=== PATIENT | female | born 1955 | race Caucasian/White ===

== ENCOUNTER → 2018-04-19 13:25 | Outpatient (CLI) | payer OTHER, MEDICAID, SELFPAY ==
--- NOTE | 2018-04-19 14:09 | DI.MRI.S_ITS ---
PROCEDURE: MR LUMBAR SPINE WO CON INDICATIONS: severe low back pain, steroid shots no longer effective TECHNIQUE: Noncontrast sagittal T1 spin echo and T2 fast echo, sagittal STIR, axial T1 and T2 fast spin echo through the lumbar spine. In cases with scoliosis, additional coronal T2 fast spin echo may be performed. COMPARISON: [facility], MR, L-SPINE WITHOUT CONTRAST, 08/02/2016, 8:58. FINDINGS: Image quality: Excellent. Alignment and Curvature: Unchanged trace retrolisthesis of L5 on S1 Bone Marrow: Diffuse endplate spurring. Mild diffuse endplate degenerative signal changes. No acute vertebral body compression fractures. Diffuse mild lumbar disc degeneration from L2-S1 with interval progression at the L5-S1 level. Spinal Cord: Conus medullaris terminates at the L1-L2 level. Visualized cord demonstrates normal signal and size. Paraspinous Soft Tissues: No paravertebral masses. L1-L2: Normal appearance. L2-L3: Mild central canal narrowing. Mild partial effacement of both lateral recesses although this appears symmetric. This may be minimally progressed since the prior study dated 08/02/16. Mild/moderate bilateral foraminal narrowing, grossly unchanged L3-L4: Mild central canal narrowing. Partial effacement of the left and right lateral recesses however this appears similar to 08/02/16 although may be mildly improved on the left. Mild right and [id number] left foraminal stenoses, progressed on the left since the prior study. L4-L5: Mild dorsal epidural lipomatosis. Ligamentum flavum hypertrophy and broad-based posterior disc bulge. Bilateral facet arthropathy. Moderate canal narrowing. There is severe partial effacement of both lateral recesses although this appears grossly unchanged. Moderate left and mild right foraminal narrowing. No interval change L5-S1: Broad-based posterior disc bulge bilateral facet arthropathy. Mild central canal narrowing. Partial effacement of the left and right lateral recess this appears symmetric (not included on prior study) severe bilateral foraminal stenoses, progressed on the left since the prior study and unchanged on the right. IMPRESSION: Interval progression of left L5-S1 severe foraminal stenosis since 08/02/16. There is also severe right L5-S1 foraminal narrowing as before. Minimal worsening of bilateral low-grade subarticular narrowing at the L2-L3 level as above. Dictated by: Sriram Davis M.D. on 04/19/2018 at 14:57 Approved by: Sriram Davis M.D. on 04/19/2018 at 15:07
--- NOTE | 2018-04-19 14:09 | DI.MRI.S_ITS ---
PROCEDURE: MR CERVICAL SPINE WO CON INDICATIONS: cervical stenosis, neck pain TECHNIQUE: Noncontrast sagittal T1 spin echo and T2 fast spin echo, sagittal STIR, foraminal oblique sagittal T2 fast spin echo, and axial gradient echo or T2 fast spin echo through the cervical spine. COMPARISON: None. FINDINGS: Image quality: Excellent. Alignment and Curvature: There is loss of normal cervical lordosis. Bone Marrow: Marrow demonstrates normal overall signal. There is moderate reactive signal within the endplates adjacent to the C5-C6 and C6-C7 intervertebral discs. Spinal Cord: Visualized spinal cord has normal size and signal. No cerebellar tonsillar herniation. Paraspinous Soft Tissues: No paravertebral masses. Prevertebral soft tissues are normal in thickness. C2-C3: Mild facet hypertrophy. No significant canal, nor foraminal stenosis. C3-C4: Mild disc desiccation. Moderate facet and uncovertebral hypertrophy. No significant canal stenosis. Severe left and moderate right foraminal stenosis. Flattening of the left C4 nerve root. C4-C5: Moderate disc desiccation. Mild diffuse disc bulge. Mild facet and uncovertebral hypertrophy. Mild left greater than right foraminal stenosis. Mild canal stenosis. C5-C6: Moderate disc height loss and desiccation. Mild diffuse disc bulge. Mild facet and uncovertebral hypertrophy bilaterally. Mild canal stenosis. Moderate right and mild left foraminal stenosis. C6-C7: Moderate disc height loss and desiccation. Mild diffuse disc bulge with superimposed right paracentral protrusion. Mild facet and uncovertebral hypertrophy bilaterally. Moderate canal stenosis. Moderate bilateral foraminal stenosis. C7-T1: Moderate disc height loss and desiccation. Moderate facet and uncovertebral hypertrophy bilaterally. Mild canal stenosis. Severe bilateral foraminal stenosis with bilateral C8 nerve root flattening. IMPRESSION: 1. Multilevel degenerative disc and facet disease, as well as uncovertebral hypertrophy. 2. Mild multilevel canal stenoses. 3. Multilevel foraminal stenoses, worst at C3-C4 on the left, and bilaterally at C7-T1, where there is associated intraforaminal neural flattening as described above. Recommend correlation with clinical symptoms to ascertain relevance of these findings. Dictated by: Yann Kumar M.D. on 04/19/2018 at 14:00 Approved by: Yann Kumar M.D. on 04/19/2018 at 14:09
== END ==
PROVIDERS: Family Provider Family Medicine; PCP Family Medicine; Visit Provider Physical Medicine & Rehabilitation
DX: M54.5 Low back pain (principal); M48.07 Spinal stenosis, lumbosacral region; M48.062 Spinal stenosis, lumbar region with neurogenic claudication; M48.02 Spinal stenosis, cervical region; M50.31 Other cervical disc degeneration, high cervical region; M54.17 Radiculopathy, lumbosacral region; M54.16 Radiculopathy, lumbar region
CPT/HCPCS: 72141; 72148

== ENCOUNTER → 2018-06-21 11:40 | Outpatient (CLI) | payer OTHER, MEDICAID, SELFPAY ==
--- NOTE | 2018-06-21 11:49 | DI.RAD.S_ITS ---
PROCEDURE: XR SACRUM COCCYX MIN 2V INDICATIONS: eval TECHNIQUE: 3 views of the sacrum and coccyx acquired. COMPARISON: [facility], , SACRUM-COCCYX MIN 2 VIEWS, 09/13/2016, 10:36. FINDINGS: Bones: No fractures or dislocations. No suspicious bony lesions. The sacrum appears normal but there is degenerative disc disease and facet osteoarthritis that is moderately severe at L5-S1, previously present. Soft tissues: Visualized bowel gas pattern is normal. No suspicious soft tissue densities. IMPRESSION: The sacrum appears normal for age, source of current sacral pain symptoms is not seen. There is, however, moderately severe L5-S1 degenerative disc disease and facet osteoarthritis, previously present. Dictated by: Fabricio Jimenez M.D. on 06/21/2018 at 12:43 Approved by: Fabricio Jimenez M.D. on 06/21/2018 at 12:44
== END ==
PROVIDERS: Family Provider Family Medicine; PCP Family Medicine; Visit Provider Physical Medicine & Rehabilitation
DX: M53.3 Sacrococcygeal disorders, not elsewhere classified (principal); M51.37 Other intervertebral disc degeneration, lumbosacral region; M47.817 Spondylosis without myelopathy or radiculopathy, lumbosacral region
CPT/HCPCS: 72220

== ENCOUNTER 2018-07-10 07:10 | Outpatient (CLI) | payer OTHER, MEDICAID, SELFPAY ==
[2018-07-10] VITALS (8 sets, daily range): BP systolic 124–150; BP diastolic 68–94; PULSE 57–70; RESP 16–18; TEMP 36.1; O2SAT 94–100
--- NOTE | 2018-07-10 07:13 | DI.RAD.S_ITS ---
PROCEDURE: PAIN SI JOINT INJECTION INDICATIONS: SACRAL/ COCCYX DISORDER FINDINGS: Fluoroscopic spot filming was performed to verify placement of spinal needle at the sacrococcyx junction level(s), as labeled on the films. Appropriate location(s) of the needle tip(s) was confirmed by injection of iodinated contrast. Dictated by: Sriram Davis M.D. on 07/10/2018 at 9:29 Approved by: Sriram Davis M.D. on 07/10/2018 at 9:31
[2018-07-10] MEDS: MIDAZOLAM 5 MG/5 ML VIAL IV (08:40)
[2018-07-10] MEDS: fentaNYL 100 MCG/2 ML INJ IV (08:50)
[2018-07-10] MEDS: BUPIVACAINE 0.5% (PF) VIAL 2 ML INJ (08:51)
[2018-07-10] MEDS: IOPAMIDOL 15 ML VIAL 3 ML INJ (08:51)
[2018-07-10] MEDS: BETAMETHASONE 30 MG/5 ML MDV 12 MG INJ (08:52)
--- NOTE | 2018-07-10 08:57 | PC.NURSE ---
ASSISTING PT OFF TABLE AND TRANSPORTING TO POST PROC AREA IN STABLE CONDITION
--- NOTE | 2018-07-10 09:09 | P.PCN_ITS ---
Procedures Date/Time Date of procedure: 07/10/18 Time of procedure: 09:01 General Procedure description: PREOP Dx: Sacroiliac joint pain/DJD POST OP DX: Sacroiliac Joint Pain/DJD Procedures: Fluoroscopic guided contrast controlled Sacral-Coccyxgeal injection Physician: Galo Lang D.O. Indications: Agustin is referred by Dr. Garcia for treatment of Sacral-Coccyxgeal joint fx. Description of procedure Fluoroscopic guided, contrast controlled Sacral-Coccyxgeal joint injection Following denial of allergies and review of potential side effects and complications, including, but not necessarily limited to, infection, allergic reaction, local tissue breakdown, temporary as well as permanent nerve injury, paralysis, stroke and possible , the patient indicated that they understood and agreed to proceed. An informed consent was signed by the patient, witnessed by a nurse, and placed in the patient's chart. Additionally, other treatment options including modalities, medications, and physical therapy were reviewed wi th the patient. After review of previous anaesthesic history and IV conscious sedation the patient was deemed safe to proceed with todays procedure with IV conscious sedation as ASA class II designation. Safety time-out was performed to confirm patient ID, procedure to be performed and site of procedure. IV sedation was accomplished with a combination of 3mg of Versed and 50mcg of Fentanyl admini stered by the RN after DO order, titrated to patient comfort during the course of the procedure while the patient remained responsive to all verbal commands. In the prone position following sterile prep and drape of the pelvic region, the Sacral-Coccyxgeal joint was identified fluoroscopically the skin was anesthetized be a 25 gauge 1.5 inch needle with approximately 2cc of 1% lidocaine solution. At this point, a 25gauge, 1.5 needle was atraumatically introduced and advanced under fluoroscopic guidance into the Sacral-Coccyxgeal joint. Following negative aspiration, approximately 0.3 cc of Isovue-300 was injected confirming intra-articular placement without vascular uptake. Radiographic data, including multiple fluoroscopic views of the pelvis, reveals a spinal needle in the Sacral-Coccyxgeal joint. Subsequent view show flow contrast tear superiorly and inferiorly within the joint capsule without vascular intrathecal uptake. At this point a total of 1cc or of 0.5% Marcaine was combined with 1cc of 6mg of betamethasone was injected without incident. The patient tolerated the procedure well without signs or symptoms of complications prior to transfer to the recovery area for further monitoring. The patient was then transferred to the recovery area with a bur observed for an appropriate time after the injection. The patient reverted a vas score of 7 prior to the procedure and postprocedure vas of 1. Total fluoroscopy time: 22.7 sec Total conscious sedation time: 24 min Postop instructions The patient was provided with a pain like to continue to record the patient's response to the target specific procedure prior to the patient's follow-up visit with the referring physician. Additionally, specific post injection care instructions and a contact number to our office were provided if concerns arise regarding the possible complications associated with procedure are suspected. Galo Lang D.O. Complications: none
--- NOTE | 2018-07-10 09:16 | PC.NURSE ---
pt returned from procedure awake and alert, able to move from W/C to chair on own power. Resumed monitoring from [facility].
== END 2018-07-10 09:20 ==
LOC: RAD 07:11
PROVIDERS: Family Provider Family Medicine; PCP Family Medicine; Visit Provider Physical Medicine & Rehabilitation
DX: M53.3 Sacrococcygeal disorders, not elsewhere classified (principal); M47.898 Other spondylosis, sacral and sacrococcygeal region
CPT/HCPCS: 27096; 99152; J0702; J2250; J3010

== ENCOUNTER 2018-12-03 08:35 | Outpatient (CLI) | payer OTHER, MEDICAID, SELFPAY ==
[2018-12-03] VITALS (8 sets, daily range): BP systolic 93–126; BP diastolic 61–91; PULSE 56–62; RESP 16; TEMP 36; O2SAT 96–100
--- NOTE | 2018-12-03 08:38 | DI.RAD.S_ITS ---
PROCEDURE: PAIN L/S TRANSFORAMINAL INJECT INDICATIONS: SPINAL STENOSIS FINDINGS: Fluoroscopic spot filming was performed to verify placement of spinal needles at the L5-S1 level(s), as labeled on the films. Appropriate location(s) of the needle tip(s) was confirmed by injection of iodinated contrast. Dictated by: Sriram Davis M.D. on 12/03/2018 at 12:40 Approved by: Sriram Davis M.D. on 12/03/2018 at 12:40
[2018-12-03] MEDS: fentaNYL 100 MCG/2 ML INJ 50 MCG IV (10:19)
[2018-12-03] MEDS: MIDAZOLAM 5 MG/5 ML VIAL IV (10:19)
[2018-12-03] MEDS: BUPIVACAINE 0.25% (PF) VIAL 2 ML INJ (10:32)
[2018-12-03] MEDS: IOPAMIDOL 15 ML VIAL 3 ML INJ (10:32)
[2018-12-03] MEDS: DEXAMETHASONE 10 MG/ML VIAL 20 MG INJ (10:33)
[2018-12-03] MEDS: BETAMETHASONE 30 MG/5 ML MDV 6 MG INJ (10:33)
--- NOTE | 2018-12-03 10:36 | PM.PROC.1 ---
Procedures Date/Time Date of procedure: 12/03/18 Time of procedure: 10:36 General Procedure description: PREOP DIAGNOSIS 1. FORMAINAL STENOSIS WITH LE SYMPTOMS, POST OP DIAGNOSIS 1. FORMAINAL STENOSIS WITH LE SYMPTOMS, PROCEDURES 1.FLUOROSCOPICALLY GUIDED CONTRAST CONTROLLED TRANSFORAMINAL EPIDURAL STEROID INJECTION - RIGHT L5/S1 TFESI PHYSICIAN: Galo Lang DO INDICATIONS: Agustin is referred by for treatment of Foraminal Stenosis with right LE Symptoms FINDINGS Foraminal Nerve Root Compression secondary to disc disease and facet hypertrophy DESCRIPTION OF PROCEDURE Following review of allergy and review of potential side effects and complications, including, but not necessarily limited to, infection, allergic reaction, local tissue breakdown, stroke, temporary or permanent nerve injury, paralysis, and possible , the patient indicated that the patient understood and agreed to proceed. An informed consent document was signed by the patient, witnessed by a nurse, and placed in the patient's chart. Additionally, other treatment options including medications, modalities, and physical therapy were reviewed with the patient. After review of previous anaesthesic history and IV conscious sedation the patient was deemed safe to proceed with todays procedure with IV conscious sedation as ASA class II designation. Safety time-out was performed to confirm patient ID, procedure to be performed and site of procedure. IV sedation was accomplished with a combination of 2mg of Versed and 50mcg of Fentanyl was administered by the RN after DO order, titrated to patient comfort during the course of the procedure while the patient remained responsive to all verbal commands In the prone position following sterile prep and drape of the lumbar region, the right L5/S1 posterior neuroforamen was identified fluoroscopically. The skin was anesthetized via a 25-gauge 1.5-inch needle with 1% lidocaine solution. At this point, a 25-gauge 3.5-inch spinal needle was atraumatically introduced and advanced under fluoroscopic guidance through the posterior right L5/S1 neuroforamen to approximately the anterior aspect of the canal. Depth was confirmed on lateral view. Following negative aspiration, injection of approximately 1.5 cc of Isovue 200 under live fluoroscopy in the AP view confirmed excellent flow along the nerve root, into the epidural space without vascular or intrathecal uptake observed Radiological data, including multiple fluoroscopic views of the lumbosacral spine, reveal a spinal needle at the right L5/S1 posterior neuroforamen. Subsequent views show flow of contrast material flowing superiorly and inferiorly along the nerve root confirming epidural flow. Subsequently, a test dose of 1.5 cc of 1% lidocaine solution was administered and patient was observed for two minutes for signs or symptoms of complications, including abdominal pain, shortness of breath, bilateral upper or lower extremity weakness, nausea and vomiting, prior to steroid injection. At this point, a total of 3cc or 20mg of dexamethasone and 6mg betamethasone was injected without incident. The procedure tolerated the procedure well without signs or symptoms of complications prior to transfer to the recovery area continued monitoring without incident. The patient was then transferred to the recovery area where they were observed for an appropriate time after the injection. The patient reported a VAS score of 7 prior to the procedure and a post-procedure VAS of 0. Total Fluoroscopy Time: 20.9 seconds Total Conscious Sedation Time: 24min POST OP INSTRUCTIONS The patient was provided a Pain Log to continue to record their response to the target-specific procedure prior to follow-up visit with their referring physician. Additionally, specific post-injection care instructions and a contact number to our office were provided if concerns arise regarding possible complications associated with the procedure are suspected. Galo Lang, Complications: none
--- NOTE | 2018-12-03 15:33 | PC.NURSE ---
1037 rtr from post procedure, stable, snacks provided and tolerated.
== END 2018-12-03 11:07 | disposition home or self-care (01) ==
LOC: RAD 08:37
PROVIDERS: PCP Student in an Organized Health Care Education/Training Program; Visit Provider Physical Medicine & Rehabilitation
DX: M48.07 Spinal stenosis, lumbosacral region (principal); M51.17 Intervertebral disc disorders with radiculopathy, lumbosacral region
CPT/HCPCS: 64483; 99152; J0702; J1100; J2250; J3010

== ENCOUNTER → 2018-12-16 12:48 | Outpatient (CLI) | payer OTHER, MEDICAID, SELFPAY ==
--- NOTE | 2018-12-16 | DI.RAD.S_ITS ---
PROCEDURE: XR CHEST 2V INDICATIONS: CXR PA/LATERAL COUGH [id number] TECHNIQUE: 2 views of the chest were acquired. COMPARISON: Thoracic spine radiograph 08/08/2010. FINDINGS: Surgical changes and devices: None. Lungs and pleura: Lungs are clear. No pleural effusions or pneumothorax. Mediastinum: Mediastinal contours are normal. Heart size is at the upper limits of normal. Bones and chest wall: No suspicious bony abnormalities. Soft tissues appear unremarkable. IMPRESSION: No acute cardiopulmonary abnormality. Dictated by: Matthew Walton M.D. on 12/16/2018 at 14:10 Approved by: Matthew Walton M.D. on 12/16/2018 at 14:12
== END ==
PROVIDERS: PCP Student in an Organized Health Care Education/Training Program; Visit Provider Student in an Organized Health Care Education/Training Program
DX: R05 Cough (principal)
CPT/HCPCS: 71046

== ENCOUNTER 2019-03-28 06:45 | Outpatient (CLI) | payer OTHER, MEDICAID, SELFPAY ==
[2019-03-28] VITALS (8 sets, daily range): BP systolic 115–148; BP diastolic 65–91; PULSE 55–67; RESP 16; TEMP 36.1; O2SAT 96–100
--- NOTE | 2019-03-28 06:46 | DI.RAD.S_ITS ---
PROCEDURE: PAIN L/S TRANSFORAMINAL INJECT INDICATIONS: RADICULOPATHY FINDINGS: Fluoroscopic spot filming was performed to verify placement of spinal needles at the L4-L5 level(s), as labeled on the films. Appropriate location(s) of the needle tip(s) was confirmed by injection of iodinated contrast. Dictated by: Sriram Davis M.D. on 03/28/2019 at 11:11 Approved by: Sriram Davis M.D. on 03/28/2019 at 11:12
[2019-03-28] MEDS: MIDAZOLAM 5 MG/5 ML VIAL IV (08:13)
[2019-03-28] MEDS: fentaNYL 100 MCG/2 ML INJ 50 MCG IV (08:13)
[2019-03-28] MEDS: ONDANSETRON 4 MG/2 ML INJ IV (08:17)
[2019-03-28] MEDS: DEXAMETHASONE 10 MG/ML VIAL 20 MG INJ (08:19)
[2019-03-28] MEDS: BETAMETHASONE 30 MG/5 ML MDV 6 MG INJ (08:19)
[2019-03-28] MEDS: IOPAMIDOL 15 ML VIAL 3 ML INJ (08:19)
[2019-03-28] MEDS: BUPIVACAINE 0.25% (PF) VIAL 2 ML INJ (08:19)
--- NOTE | 2019-03-28 08:23 | PC.NURSE ---
ASSISTING PT OFF TABLE AND TRANSPORTING TO POST PROC AREA IN STABLE CONDITION. PASSING RN CARE OF PT OFF TO PEDRO Egan RN.
--- NOTE | 2019-03-28 08:28 | P.PCN_ITS ---
Procedures Date/Time Date of procedure: 03/28/19 Time of procedure: 08:28 General Procedure description: PREOP DIAGNOSIS 1. FORMAINAL STENOSIS WITH LE SYMPTOMS POST OP DIAGNOSIS 1. FORMAINAL STENOSIS WITH LE SYMPTOMS PROCEDURES 1. FLUOROSCOPICALLY GUIDED CONTRAST CONTROLLED TRANSFORAMINAL EPIDURAL STEROID INJECTION - RIGHT L4/5 TFESI PHYSICIAN: Galo Lang DO INDICATIONS: Agustin is referred by for treatment of Foraminal Stenosis with Right LE Symptoms FINDINGS Foraminal Nerve Root Compression secondary to disc disease and facet hypertrophy DESCRIPTION OF PROCEDURE: Following review of allergy and review of potential side effects and complications, including, but not necessarily limited to, infection, allergic reaction, local tissue breakdown, stroke, temporary or permanent nerve injury, paralysis, and possible , the patient indicated that the patient understood and agreed to proceed. An informed consent document was signed by the patient, witnessed by a nurse, and placed in the patient's chart. Additionally, other treatment options including medications, modalities, and physical therapy were reviewed with the patient. After review of previous anaesthesic history and IV conscious sedation the patient was deemed safe to proceed with todays procedure with IV conscious sedation as ASA class II designation. Safety time-out was performed to confirm patient ID, procedure to be performed and site of procedure. IV sedation was accomplished with a combination of 1mg of Versed and 50mcg of Fentanyl was administered by the RN after DO order, titrated to patient comfort during the course of the procedure while the patient remained responsive to all verbal commands In the prone position following sterile prep and drape of the lumbar region, the Right L4/5 posterior neuroforamen was identified fluoroscopically. The skin was anesthetized via a 25-gauge 1.5-inch needle with 1% lidocaine solution. At this point, a 25-gauge 3.5-inch spinal needle was atraumatically introduced and ad vanced under fluoroscopic guidance through the posterior Right L4/5 neuroforamen to approximately the anterior aspect of the canal. Depth was confirmed on lateral view. Following negative aspiration, injection of approximately 1.5 cc of Isovue 200 under live fluoroscopy in the AP view confirmed excellent flow along the nerve root, into the epidural space without vascular or intrathecal uptake observed Radiological data, including multiple fluoroscopic views of the lumbosacral spine, reveal a spinal needle at the right L4/5 posterior neuroforamen. Subsequent views show flow of contrast material flowing superiorly and inferiorly along the nerve root confirming epidural flow. Subsequently, a test dose of 1.5 cc of 1% lidocaine solution was administered and patient was observed for two minutes for signs or symptoms of complications, including abdominal pain, shortness of breath, bilateral upper or lower extremity weakness, nausea and vomiting, prior to steroid injection. At this point, a total of 3cc or 20mg of dexamethasone and 6mg of betamethasone was injected without incident. The procedure tolerated the procedure well without signs or symptoms of complications prior to transfer to the recovery area continued monitoring without incident.The patient was then transferred to the recovery area where they were observed for an appropriate time after the injection. The patient reported a VAS score of 7 prior to the procedure and a post- procedure VAS of 0. Total Fluoroscopy Time: 10 seconds Total Conscious Sedation Time: 24min POST OP INSTRUCTIONS The patient was provided a Pain Log to continue to record their response to the target-specific procedure prior to follow-up visit with their referring physician. Additionally, specific post-injection care instructions and a contact number to our office were provided if concerns arise regarding possible complications associated with the procedure are suspected. Galo Lang, Complications: none
--- NOTE | 2019-03-28 08:56 | PC.NURSE ---
Post procedure discharge note: Patient arrived at 0832. Patient awake and alert. VSS on arrival. Pain level 05/12. Handoff report received from Efrain Da Silva RN. Discharge instructions reviewed with patient and spouse with good understanding. Discharged to home. W/c to car at 0850. Pain level unchanged at 3
== END 2019-03-28 08:50 | disposition home or self-care (01) ==
LOC: RAD 06:46
PROVIDERS: PCP Student in an Organized Health Care Education/Training Program; Visit Provider Physical Medicine & Rehabilitation
DX: M48.061 Spinal stenosis, lumbar region without neurogenic claudication (principal); M51.16 Intervertebral disc disorders with radiculopathy, lumbar region
CPT/HCPCS: 64483; 99152; J0702; J1100; J2250; J2405; J3010

== ENCOUNTER 2019-05-01 07:10 | Outpatient (CLI) | payer OTHER, MEDICAID, SELFPAY ==
[2019-05-01] VITALS (9 sets, daily range): BP systolic 112–140; BP diastolic 72–94; PULSE 69–83; RESP 14–16; O2SAT 93–100
--- NOTE | 2019-05-01 07:11 | DI.RAD.S_ITS ---
PROCEDURE: PAIN C/T INTERLAMINAR INJECT INDICATIONS: SPINAL STENOSIS FINDINGS: Fluoroscopic spot filming was performed to verify placement of spinal needles at the C6-C7 level(s), as labeled on the films. Appropriate location(s) of the needle tip(s) was confirmed by injection of iodinated contrast. Dictated by: Sriram Davis M.D. on 05/01/2019 at 10:41 Approved by: Sriram Davis M.D. on 05/01/2019 at 10:41
[2019-05-01] MEDS: MIDAZOLAM 5 MG/5 ML VIAL IV (09:06)
[2019-05-01] MEDS: fentaNYL 100 MCG/2 ML INJ 50 MCG IV (09:06)
[2019-05-01] MEDS: IOPAMIDOL 15 ML VIAL 3 ML INJ (09:10)
[2019-05-01] MEDS: DEXAMETHASONE 10 MG/ML VIAL 20 MG INJ (09:10)
[2019-05-01] MEDS: BUPIVACAINE 0.25% (PF) VIAL 2 ML INJ (09:10)
--- NOTE | 2019-05-01 09:13 | PC.NURSE ---
ASSISTING PT OFF TABLE AND TRANSPORTING TO POST PROC AREA IN STABLE CONDITION. PASSING RN CARE OF PT OFF TO NIYA Oneal RN.
--- NOTE | 2019-05-01 09:16 | P.PCN_ITS ---
Procedures Date/Time Date of procedure: 05/01/19 Time of procedure: 09:16 General Procedure description: PREOP DIAGNOSIS 1. CERVICAL STENOSIS, 2. CERVICAL HNP WITH UPPER EXTREMITY RADICULAR FEATURES, POST OP DIAGNOSIS 1. CERVICAL STENOSIS, 2. CERVICAL HNP WITH UPPER EXTREMITY RADICULAR FEATURES, PROCEDURES 1. FLUORSCOPICALLY GUIDED CONTRAST CONTROLLED INTERLAMINAR EPIDURAL STEROID INJECTION - C6/7 TL [place] PHYSICIAN: Galo Lang, DO INDICATIONS Agustin is referred by Dr. Tijerina for treatment of Cervical HNP with Upper Extremity Paresthesias. FINDINGS Cervical Stenosis due to disc deterioration and nerve root irritation and nerve root irritation DESCRIPTION OF PROCEDURE Fluoroscopically guided, contrast-controlled C6/7 translaminar epidural steroid injection with conscious sedation. Following review of allergy and review of potential side effects and complications, including, but not necessarily limited to, infection, allergic reaction, local tissue breakdown, temporary as well as permanent nerve injury, stroke, paralysis, and possible , the patient indicated that patient understood and agreed to proceed. An informed consent document was signed by the patient, witnessed by a nurse, and placed in the patient's chart. Additionally, other treatment options including modalities, medications, and physical therapy were reviewed with the patient. After review of previous anaesthesic history and IV conscious sedation the patient was deemed safe to proceed with todays procedure with IV conscious sedation as ASA class II designation. Safety time-out was performed to confirm patient ID, procedure to be performed and site of procedure. IV sedation was accomplished with a combination of 2mg of Versed and 50mcg of Fentanyl administered by the RN after DO order, titrated to patient comfort during the course of the procedure while the patient remained responsive to all verbal commands. In the prone position, following sterile prep and drape of the cervical region, the C6/7 translaminar space was identified fluoroscopically. The skin was anesthetized via a 25-gauge 1.5-inch needle with 1% lidocaine solution. At this point, a 25-gauge, 2.5-inch short bevel spinal needle was atraumatically introduced and advanced under fluoroscopic guidance into epidural space at the C6/7 translaminar space. Depth was confirmed on lateral view. Radiological data, including multiple fluoroscopic views of the cervical spine, reveal a spinal needle at the C6/7 translaminar space. Lateral views then show placement of the needle in the epidural space. Subsequent views show contrast material flowing superiorly and inferiorly in the epidural space. DSA fluoroscopy with live contrast injection, once again, confirmed no vascular or intrathecal uptake. At this point, using loss of resistance technique with saline and air, the epidural space was entered. Following negative aspiration, injection of approximately 1.5 cc of Isovue-200 with live fluoroscopy in the AP view confirmed epidural flow in the epidural space without vascular or intrathecal uptake observed. Subsequently, a test dose of 1 cc of 1% lidocaine solution was injected and patient was observed for two minutes without signs or symptoms of complications, including abdominal pain, shortness of breath, bilateral upper or lower extremity weakness, nausea and vomiting, prior to steroid injection. At this point, 2cc or 20mg of dexamethasone was then injected without incident. The patient tolerated the procedure well without signs or symptoms of complications prior to being transferred to the recovery area for further m onitoring, The patient was then transferred to the recovery area where they were observed for an appropriate period of time after the injection. The patient reported a VAS score of 6 prior to the procedure and a post-procedure VAS of 0. Total Fluoroscopy Time: 18 seconds Total Conscious Time: 24min POST OP INSTRUCTIONS The patient was provided a Pain Log to continue to record their response to the target-specific procedure prior to follow-up visit with the referring provider. Additionally, specific post-injection care instructions and a contact number to our office were provided if concerns arise regarding possible complications associated with the procedure are suspected. Galo Lang DO Complications: none
--- NOTE | 2019-05-01 10:40 | PC.NURSE ---
patient arrived from procedure via w/c accompanied by Soo, stand by assist to chair, denies pain, given water and cookies,
== END 2019-05-01 09:44 | disposition home or self-care (01) ==
LOC: RAD 07:10
PROVIDERS: PCP Student in an Organized Health Care Education/Training Program; Referring Provider Physical Medicine & Rehabilitation; Visit Provider Physical Medicine & Rehabilitation
DX: M48.02 Spinal stenosis, cervical region (principal); M50.123 Cervical disc disorder at C6-C7 level with radiculopathy; R20.2 Paresthesia of skin
CPT/HCPCS: 62321; 99152; J1100; J2250; J3010

== ENCOUNTER → 2019-09-13 08:16 | Outpatient (CLI) | payer OTHER, MEDICAID, SELFPAY ==
[2019-09-14 18:38] LABS: COVID19 Sendout Not Detected (Not Detect)
== END ==
PROVIDERS: PCP Student in an Organized Health Care Education/Training Program; Visit Provider Physician Assistant
DX: Z01.812 Encounter for preprocedural laboratory examination (principal)
CPT/HCPCS: 87635

== ENCOUNTER 2019-09-16 09:21 | Outpatient (CLI) | payer OTHER, MEDICAID, SELFPAY ==
[2019-09-16] VITALS (9 sets, daily range): BP systolic 113–147; BP diastolic 73–88; PULSE 61–80; RESP 15–17; TEMP 36.3; O2SAT 96–100
--- NOTE | 2019-09-16 09:22 | DI.RAD.S_ITS ---
PROCEDURE: PAIN L/S TRANSFORAMINAL INJECT INDICATIONS: SPONDYLOSIS Fluoroscopic spot filming was performed to verify placement of a spinal needle at the L4-L5 level, as labeled on the films. Appropriate location of the needle tip was confirmed by injection of iodinated contrast. IMPRESSION: Intraprocedural examination within normal limits. Dictated by: Humble Begum M.D. on 09/17/2019 at 9:05 Approved by: Humble Begum M.D. on 09/17/2019 at 9:06
[2019-09-16] MEDS: MIDAZOLAM 5 MG/ML VIAL 2 MG IV ×2 (10:27→10:32)
[2019-09-16] MEDS: fentaNYL 100 MCG/2 ML INJ 50 MCG IV (10:27)
[2019-09-16] MEDS: BUPIVACAINE 0.25% (PF) VIAL 2 ML INJ (10:35)
[2019-09-16] MEDS: DEXAMETHASONE 10 MG/ML VIAL 20 MG INJ (10:35)
[2019-09-16] MEDS: IOPAMIDOL 15 ML VIAL 3 ML INJ (10:35)
[2019-09-16] MEDS: BETAMETHASONE 30 MG/5 ML MDV 6 MG INJ (10:35)
--- NOTE | 2019-09-16 10:47 | P.PCN_ITS ---
Date/Time/Diagnoses Date of procedure: 09/16/19 Time of procedure: 10:47 Pre-procedure diagnosis: 1. FORAMINAL STENOSIS WITH LE SYMPTOMS Post-procedure diagnosis: same Procedure Notes Procedure: 1. FLUOROSCOPICALLY GUIDED CONTRAST CONTROLLED TRANSFORAMINAL EPIDURAL STEROID INJECTION - RIGHT L4/5 TFESI Indications: Agustin is referred by for treatment of Foraminal Stenosis with Right LE Symptoms Physician: Galo Lang Total Fluoroscopy time (seconds): 8 Total sedation minutes: 24 Complications: none Procedure in detail & Post-procedure care: FINDINGS Foraminal Nerve Root Compression secondary to disc disease and facet hypertrophy DESCRIPTION OF PROCEDURE Following review of allergy and review of potential side effects and complications, including, but not necessarily limited to, infection, allergic reaction, local tissue breakdown, stroke, temporary or permanent nerve injury, paralysis, and possible , the patient indicated that the patient understood and agreed to proceed. An informed consent document was signed by the patient, witnessed by a nurse, and placed in the patient's chart. Additionally, other treatment options including medications, modalities, and physical therapy were reviewed with the patient. After review of previous anaesthesic history and IV conscious sedation the patient was deemed safe to proceed with today?s procedure with IV conscious sedation as ASA class II designation. Safety time-out was performed to confirm patient ID, procedure to be performed and site of procedure. IV sedation was accomplished with a combination of 3mg of Versed and 50mcg of Fentanyl was administered by the RN after DO order, titrated to patient comfort during the course of the procedure while the patient remained responsive to all verbal commands In the prone position following sterile prep and drape of the lumbar region, the Right L4/5 posterior neuroforamen was identified fluoroscopically. The skin was anesthetized via a 25-gauge 1.5-inch needle with 1% lidocaine solution. At this point, a 25-gauge 3.5-inch spinal needle was atraumatically introduced and advanced under fluoroscopic guidance through the posterior Right L4/5 neuroforamen to approximately the anterior aspect of the canal. Depth was confirmed on lateral view. Following negative aspiration, injection of approximately 1.5 cc of Isovue 200 under live fluoroscopy in the AP view confirmed excellent flow along the nerve root, into the epidural space without vascular or intrathecal uptake observed Radiological data, including multiple fluoroscopic views of the lumbosacral spine, reveal a spinal needle at the right L4/5 posterior neuroforamen. Subsequent views show flow of contrast material flowing superiorly and inferiorly along the nerve root confirming epidural flow. Subsequently, a test dose of 1.5 cc of 1% lidocaine solution was administered and patient was observed for two minutes for signs or symptoms of complications, including abdominal pain, shortness of breath, bilateral upper or lower extremity weakness, nausea and vomiting, prior to steroid injection. At this point, a total of 3cc or 20mg of dexamethasone and 6mg of betamethasone was injected without incident. The procedure tolerated the procedure well without signs or symptoms of complications prior to transfer to the recovery area continued monitoring without incident. The patient was then transferred to the recovery area where they were observed for an appropriate time after the injection. The patient reported a VAS score of 7 prior to the procedure and a post- procedure VAS of 0. POST OP INSTRUCTIONS The patient was provided a Pain Log to continue to record their response to the target-specific procedure prior to follow-up visit with their referring physician. Additionally, specific post-injection care instructions and a contact number to our office were provided if concerns arise regarding possible complications associated with the procedure are suspected.
--- NOTE | 2019-09-16 11:28 | PC.NURSE ---
1058 pt returned to pre procedure room by . 2PA transfer from wc to chair. Resumed monitoring by Emmanuel
== END 2019-09-16 11:13 | disposition home or self-care (01) ==
LOC: RAD 09:22
PROVIDERS: PCP Student in an Organized Health Care Education/Training Program; Referring Provider Physical Medicine & Rehabilitation; Visit Provider Physical Medicine & Rehabilitation
DX: M48.061 Spinal stenosis, lumbar region without neurogenic claudication (principal); M51.16 Intervertebral disc disorders with radiculopathy, lumbar region
CPT/HCPCS: 64483; 99152; J0702; J1100; J2250; J3010

== ENCOUNTER 2019-10-02 15:57 | Emergency (ER) | payer OTHER, MEDICAID, SELFPAY ==
[2019-10-02 16:16] VITALS: BP 129/82; PULSE 72; RESP 16; TEMP 37.1; O2SAT 98; BMI 31.8
== END 2019-10-02 18:14 | disposition left against medical advice (07) ==
PROVIDERS: Emergency Provider Emergency Medicine; PCP Student in an Organized Health Care Education/Training Program; Referring Provider Student in an Organized Health Care Education/Training Program
CPT/HCPCS: 99281

== ENCOUNTER → 2019-12-02 14:22 | Outpatient (CLI) | payer OTHER, MEDICAID, SELFPAY ==
--- NOTE | 2019-12-02 | DI.RAD.S_ITS ---
PROCEDURE: XR CHEST 2V INDICATIONS: UPPER RESPIRATORY INFECTION TECHNIQUE: 2 views of the chest were acquired. COMPARISON: [facility], CR, XR CHEST 2V, 12/16/2018, 13:49. FINDINGS: Surgical changes and devices: None. Lungs and pleura: Lungs are clear. No pleural effusions or pneumothorax. Mediastinum: Mediastinal contours are normal. Heart size is normal. Bones and chest wall: No suspicious bony abnormalities. Soft tissues appear unremarkable. IMPRESSION: No acute cardiopulmonary disease. Dictated by: Tio Lowery M.D. on 12/02/2019 at 14:50 Approved by: Tio Lowery M.D. on 12/02/2019 at 14:51
== END ==
PROVIDERS: PCP Student in an Organized Health Care Education/Training Program; Referring Provider Student in an Organized Health Care Education/Training Program; Visit Provider Student in an Organized Health Care Education/Training Program
DX: J06.9 Acute upper respiratory infection, unspecified (principal)
CPT/HCPCS: 71046

== ENCOUNTER → 2019-12-16 09:17 | Outpatient (CLI) | payer OTHER, MEDICAID, SELFPAY ==
--- NOTE | 2019-12-16 09:17 | DI.RAD.S_ITS ---
PROCEDURE: XR LUMBAR SPINE MIN 4V INDICATIONS: low back pain TECHNIQUE: 5 views of the lumbar spine acquired. COMPARISON: [facility], CR, XR SMALL BOWEL BARIUM, 03/13/2016, 10:14. [facility], CR, L-SPINE 2-3 VIEWS, 08/16/2016, 11:10. [facility], CR, XR CHEST 2V, 12/16/2018, 13:49. FINDINGS: Bones: 5 nonrib-bearing vertebrae are present. Trace multilevel retrolisthesis. Multilevel disc degeneration, severe at the L5-S1 level. Moderate L4-L5 and L5-S1 facet joint arthropathy. No vertebral body compression fractures. No suspicious bony lesions. Soft tissues: Overlying bowel gas pattern is normal. No suspicious soft tissue calcifications. Mid abdominal metallic stent graft redemonstrated. Flexion/extension: There is normal range of motion, with preserved normal alignment. IMPRESSION: Multilevel spondylosis, most notably at the L5-S1 level. Dictated by: Tony JC Interpreted: Olive Solano MD on 12/16/2019 at 10:06 Approved by: Olive Solano M.D. on 12/16/2019 at 13:17
== END ==
PROVIDERS: PCP Student in an Organized Health Care Education/Training Program; Referring Provider Student in an Organized Health Care Education/Training Program; Visit Provider Physical Medicine & Rehabilitation
DX: M54.5 Low back pain (principal); M47.27 Other spondylosis with radiculopathy, lumbosacral region; M47.26 Other spondylosis with radiculopathy, lumbar region; M48.062 Spinal stenosis, lumbar region with neurogenic claudication
CPT/HCPCS: 72110

== ENCOUNTER → 2019-12-25 10:45 | Outpatient (CLI) | payer OTHER, MEDICAID, SELFPAY ==
--- NOTE | 2019-12-25 | DI.RAD.S_ITS ---
PROCEDURE: XR CHEST 2V INDICATIONS: UPPER RESPIRATORY INFECTION TECHNIQUE: 2 views of the chest were acquired. COMPARISON: [facility], CR, XR CHEST 2V, 12/02/2019, 14:15. FINDINGS: Surgical changes and devices: None. Lungs and pleura: Lungs are clear. No pleural effusions or pneumothorax. Mediastinum: Mediastinal contours are normal. Heart size is normal. Bones and chest wall: No suspicious bony abnormalities. Soft tissues appear unremarkable. IMPRESSION: No acute cardiopulmonary findings. Dictated by: Cindy Ibrahim M.D. on 12/25/2019 at 12:03 Approved by: Cindy Ibrahim M.D. on 12/25/2019 at 12:03
== END ==
PROVIDERS: PCP Student in an Organized Health Care Education/Training Program; Referring Provider Student in an Organized Health Care Education/Training Program; Visit Provider Student in an Organized Health Care Education/Training Program
DX: J06.9 Acute upper respiratory infection, unspecified (principal)
CPT/HCPCS: 71046

== ENCOUNTER → 2020-02-02 12:55 | Outpatient (CLI) | payer OTHER, MEDICAID, SELFPAY ==
[2020-02-02 14:14] LABS: COVID19 -Nasal RAPID Negative (Negative)
== END ==
PROVIDERS: PCP Student in an Organized Health Care Education/Training Program; Visit Provider Physical Medicine & Rehabilitation
DX: Z01.812 Encounter for preprocedural laboratory examination (principal); Z11.59 Encounter for screening for other viral diseases
CPT/HCPCS: 87635; C9803

== ENCOUNTER 2020-02-03 13:25 | Outpatient (CLI) | payer OTHER, MEDICAID, SELFPAY ==
[2020-02-03] VITALS (9 sets, daily range): BP systolic 114–146; BP diastolic 66–79; PULSE 69–79; RESP 14–23; TEMP 36.4; O2SAT 98–100
--- NOTE | 2020-02-03 13:27 | DI.RAD.S_ITS ---
PROCEDURE: PAIN L/S FACET INJ/BLK 1ST ROSALVA COMPARISON: [facility], , PAIN L/S TRANSFORAMINAL INJECT, 09/16/2019, 9:32. INDICATIONS: SPONDYLOSIS Fluoroscopic spot filming was performed to verify placement of bilateral spinal needles at the L4, L5, and S1 levels, as labeled on the films. Appropriate location of the needle tip was confirmed by injection of iodinated contrast. IMPRESSION: Intraprocedural examination within normal limits. Dictated by: Humble Begum M.D. on 02/03/2020 at 14:20 Approved by: Humble Begum M.D. on 02/03/2020 at 14:20
[2020-02-03] MEDS: MIDAZOLAM 5 MG/5 ML VIAL IV (14:45)
[2020-02-03] MEDS: fentaNYL 100 MCG/2 ML INJ 50 MCG IV (14:45)
--- NOTE | 2020-02-03 15:06 | P.PCN_ITS ---
Date/Time/Diagnoses Date of procedure: 02/03/20 Time of procedure: 15:06 Pre-procedure diagnosis: 1. FACET ARTHROPATHY Post-procedure diagnosis: same Procedure Notes Procedure: 1. BILATERAL- L4, L5 and S1 DIAGNOSTIC MB BLOCKS with LA Anesthetic Indications: Agustin is referred by Dr. Tijerina for treatment of Bilateral Axial LBP. Physician: Galo Lang Total Fluoroscopy time (seconds): 11 Total sedation minutes: 18 Complications: none Procedure in detail & Post-procedure care: DESCRIPTION OF PROCEDURE Fluoroscopically guided, contrast-controlled bilateral L4, L5 and S1 medial branch blocks with 0.5cc of 0.5% Marcaine. Following review of allergy and review of potential side effects and complications, including, but not necessarily limited to, infection, allergic reaction, local tissue breakdown, nerve injury, paralysis, stroke and possible , the patient indicated that the patient understood and agreed to proceed. An informed consent document was signed by the patient, witnessed by a nurse, and placed in the patient's chart. After review of previous anaesthesic history and IV conscious sedation the patient was deemed safe to proceed with today's procedure with IV conscious kitty tion as ASA class II designation. Safety time-out was performed to confirm patient ID, procedure to be performed and site of procedure. IV sedation was accomplished with a combination of 2mg of Versed and 50mcg of Fentanyl was administered by the RN after DO order, titrated to patient comfort during the course of the procedure while the patient remained responsive to all verbal commands In the prone position, following sterile prep and drape of the lumbar region, the right L4, L5 and S1 anatomical location of the medial branch of the dorsal ramus was identified fluoroscopically. Subsequently an anesthetic skin wheal using 1% lidocaine solution was initiated at each of the anatomical spots. Subsequently then a 22-gauge 3.5-inch spinal needle was atraumatically introduced and advanced under fluoroscopic guidance at each of the corresponding sites at the right L4, L5 and S1 MB. After negative aspiration, 0.2cc of Isovue 200 was injected, confirming placement without vascular or intrathecal uptake. Subsequently then 0.5cc of 0.5% Marcaine solution was injected at each of the corresponding sites at the right L4, L5 and S1 medial branch locations. The identical procedure was replicated on the left. The patient tolerated the procedure well without signs or symptoms of complications prior to transfer to the recovery area continued monitoring without incident. Post-procedure, the patient was monitored initiating provocative activities to measure the amount of relief from block of the facetogenic pain. The patient reported a VAS of 7 prior to the procedure and a post-procedure VAS of 1. It has been a pleasure to assist in the diagnostic and therapeutic care of your patient. POST OP INSTRUCTIONS The patient was provided with a Pain Log to complete over the next several hours and subsequent days prior to the patient's follow up with the ordering physician. If the patient has foot drill operator relief to the solution applied, then they may be a candidate for medial branch rhizotomy. The patient is aware, was provided, once again, with a Pain Log and will follow up with the referring physician for review and clinical correlation
[2020-02-03] MEDS: BUPIVACAINE 0.5% (PF) VIAL 5 ML INJ (15:42)
[2020-02-03] MEDS: IOPAMIDOL 15 ML VIAL 3 ML INJ (15:42)
== END 2020-02-03 15:29 | disposition home or self-care (01) ==
LOC: RAD 13:25
PROVIDERS: PCP Student in an Organized Health Care Education/Training Program; Referring Provider Student in an Organized Health Care Education/Training Program; Visit Provider Physical Medicine & Rehabilitation
DX: M47.816 Spondylosis without myelopathy or radiculopathy, lumbar region (principal); M47.817 Spondylosis without myelopathy or radiculopathy, lumbosacral region; M54.5 Low back pain
CPT/HCPCS: 64493; 64494; 99152; J2250; J3010

== ENCOUNTER → 2020-02-16 11:07 | Outpatient (CLI) | payer OTHER, MEDICAID, SELFPAY ==
[2020-02-16 12:59] LABS: COVID19 -Nasal RAPID Negative (Negative)
== END ==
PROVIDERS: PCP Student in an Organized Health Care Education/Training Program; Visit Provider Physical Medicine & Rehabilitation
DX: Z01.812 Encounter for preprocedural laboratory examination (principal); Z20.828 Contact with and (suspected) exposure to other viral communicable diseases
CPT/HCPCS: 87635; C9803

== ENCOUNTER 2020-02-17 10:26 | Outpatient (CLI) | payer OTHER, MEDICAID, SELFPAY ==
[2020-02-17] VITALS (9 sets, daily range): BP systolic 121–151; BP diastolic 73–89; PULSE 62–76; RESP 14–20; TEMP 36.4; O2SAT 99–100
--- NOTE | 2020-02-17 10:28 | DI.RAD.S_ITS ---
PROCEDURE: PAIN L/S MED/LAT N RFA BILAT INDICATIONS: SPONDYLOSIS COMPARISON: None. FINDINGS: Fluoroscopic spot filming was performed to verify placement of spinal needles at the L4, L5, S1 level(s), as labeled on the films. Appropriate location(s) of the needle tip(s) was confirmed by injection of iodinated contrast. Dictated by: Sriram Davis M.D. on 02/17/2020 at 13:02 Approved by: Sriram Davis M.D. on 02/17/2020 at 13:03
[2020-02-17] MEDS: fentaNYL 100 MCG/2 ML INJ 50 MCG IV (11:50)
[2020-02-17] MEDS: MIDAZOLAM 5 MG/5 ML VIAL IV (11:55)
[2020-02-17] MEDS: BUPIVACAINE 0.5% (PF) VIAL 5 ML INJ (12:15)
[2020-02-17] MEDS: LIDOCAINE 1% 20 ML INJ (12:16)
--- NOTE | 2020-02-17 12:26 | P.PCN_ITS ---
Date/Time/Diagnoses Date of procedure: 02/17/20 Time of procedure: 12:26 Pre-procedure diagnosis: 1. RECALCITRANT FACET ARTHROPATHY Post-procedure diagnosis: same Procedure Notes Procedure: 1. BILATERAL L4 AND L5 MEDIAL BRANCH RADIOFREQUENCY NEUROTOMY AND S1 DORSAL RAMUS BRANCH RADIOFREQUENCY NEUROTOMY Indications: Agustin is referred by Dr. Tijerina for treatment of facet arthropathy. Physician: Galo Lang Total Fluoroscopy time (seconds): 15 Total sedation minutes: 29 Complications: none Procedure in detail & Post-procedure care: DESCRIPTION OF PROCEDURE Bilateral L4 and L5 medial branch radiofrequency neurotomy and bilateral S1 dorsal ramus radiofrequency neurotomy under fluoroscopy with conscious sedation. The patient is well known to this clinic having undergone previous facet injections with good but temporary relief. The patient has experienced appropriate, concordant relief with previous facet and median branch blocks but the patient's pain has been recalcitrant to further conservative measures. Therefore, based upon the patient's relief and persistent symptoms, the patient is considered an appropriate candidate for facet rhizotomy. All of the patient's questions regarding the risks versus benefits of the procedure, including, but not limited to, bleeding, infection, temporary as well as lasting nerve injury, paralysis, stroke, and , as well treatment alternatives were answered to satisfaction. After obtaining informed consent, denial of pertinent drug allergies, as well as being made aware of the potential risks of bleeding, infection, spinal cord trauma, paralysis, temporary and permanent nerve damage, seizure, stroke, and possible , the patient was brought to the fluoroscopy suite and positioned prone on the fluoroscopy table. The lumbar region was prepped with Betadine and covered with a fenestrated drape in the usual sterile fashion. Appropriate monitors applied including pulse oximeter, pulse, and blood pressure for regular monitoring throughout the procedure. After review of previous anaesthesic history and IV conscious sedation the patient was deemed safe to proceed with today's procedure with IV conscious sedation as ASA class II designation. Safety time-out was performed to confirm patient ID, procedure to be performed and site of procedure. IV sedation was accomplished with a combination of 4mg of Versed and 50mcg of Fentanyl administered by the RN after DO order, titrated to patient comfort during the course of the procedure while the patient remained responsive to all verbal commands. After local infiltration using 1% lidocaine, under fluoroscopic guidance, a 10- cm RF insulated needle with a 10-mm active tip was positioned parallel to the junction of the right sacral ala and the superior articulating process where the S1 dorsal ramus resides. Needle placement was confirmed with motor stimulation of .5v on the right which produced local stimulation without radicular component. The stimulation was then increased to 2v with, once again, only local multifidus stimulation without radicular component. The needle was then removed and the identical procedure was performed along the length of the right L5 medial branch with motor stimulation at .7v on the right. The identical procedure was once again performed along the length of the right L4 medial branch with motor stimulation of .5v on the right. The medial branches were then anesthetised with 0.5% Marcaine. This was then followed by two discreet lesions performed at 80 degrees Celsius for 90 seconds each. The identical procedure was repeated on the left. The patient tolerated the procedure well without signs or symptoms of complications prior to transfer to the recovery area continued monitoring without incident. The patient was then transferred to the recovery area where they were observed for an appropriate period of time after the injection. The patient reported a VAS score of 9 prior to the procedure and a post-procedure VAS of 0. POST OP INSTRUCTIONS The patient was provided a Pain Log to continue to record the patient's response to the target-specific procedure prior to the patient's follow-up visit with the referring physician. Additionally, specific post-injection care instructions and a contact number to our office were provided if concerns arise regarding possible complications associated with the procedure are suspected.
== END 2020-02-17 12:35 | disposition home or self-care (01) ==
LOC: RAD 10:28
PROVIDERS: PCP Student in an Organized Health Care Education/Training Program; Referring Provider Student in an Organized Health Care Education/Training Program; Visit Provider Physical Medicine & Rehabilitation
DX: M47.816 Spondylosis without myelopathy or radiculopathy, lumbar region (principal); M47.817 Spondylosis without myelopathy or radiculopathy, lumbosacral region
CPT/HCPCS: 64635; 64636; 99152; 99153; J2250; J3010

== ENCOUNTER → 2020-08-13 13:02 | Outpatient (CLI) | payer MEDICARE, MEDICAID, SELFPAY ==
--- NOTE | 2020-08-13 13:04 | DI.RAD.S_ITS ---
PROCEDURE: XR LUMBAR SPINE MIN 4V INDICATIONS: LBP s/p fall TECHNIQUE: 5 views of the lumbar spine were acquired, including bilateral oblique views. COMPARISON: [facility], CR, XR LUMBAR SPINE MIN 4V, 12/16/2019, 9:08. FINDINGS: Bones: 5 nonrib-bearing vertebrae are present. There is normal bony alignment. No vertebral body compression fractures. No suspicious bony lesions. There is multilevel disc space narrowing and degenerative endplate changes that are slightly worse at the L3-4 and L5-S1 levels. Facet hypertrophy is seen from the L3-4 through L5-S1 levels. Soft tissues: Overlying bowel gas pattern is normal. No suspicious soft tissue calcifications. A vascular stent is seen in the abdomen. Oblique images: No pars defects. IMPRESSION: No acute osseous abnormality. Multilevel spondylosis is redemonstrated, again worst at the L5-S1 level. Dictated by: Arjun Rowan M.D. on 08/13/2020 at 13:52 Approved by: Arjun Rowan M.D. on 08/13/2020 at 13:56
== END ==
PROVIDERS: PCP Family Medicine; Referring Provider Physical Medicine & Rehabilitation; Visit Provider Physical Medicine & Rehabilitation
DX: M47.816 Spondylosis without myelopathy or radiculopathy, lumbar region (principal); M53.3 Sacrococcygeal disorders, not elsewhere classified
CPT/HCPCS: 72110; 99214

== ENCOUNTER 2020-08-31 10:11 | Outpatient (CLI) | payer MEDICARE, MEDICAID, SELFPAY ==
[2020-08-31] VITALS (7 sets, daily range): BP systolic 110–164; BP diastolic 65–98; PULSE 58–76; RESP 13–20; TEMP 36.4; O2SAT 96–100
--- NOTE | 2020-08-31 10:15 | DI.RAD.S_ITS ---
PROCEDURE: PAIN SI JOINT INJECTION INDICATIONS: SACROILIAC DJD COMPARISON: [facility], RG, XR PELVIS 1V, 08/08/2010, 11:28. [facility], CR, XR SACRUM COCCYX MIN 2V, 06/21/2018, 11:47. [facility], CR, XR LUMBAR SPINE MIN 4V, 12/16/2019, 9:08. [facility], CR, XR LUMBAR SPINE MIN 4V, 08/13/2020, 13:08. FINDINGS: Fluoroscopic spot filming was performed to verify placement of spinal needles at the right SI joint level(s), as labeled on the films. Appropriate location(s) of the needle tip(s) was confirmed by injection of iodinated contrast. IMPRESSION: Fluoroscopy for pain management. Dictated by: Tio Lowery M.D. on 08/31/2020 at 12:37 Approved by: Tio Lowery M.D. on 08/31/2020 at 12:38
[2020-08-31] MEDS: fentaNYL 100 MCG/2 ML INJ 50 MCG IV (11:50)
[2020-08-31] MEDS: MIDAZOLAM 5 MG/5 ML VIAL IV (11:50)
[2020-08-31] MEDS: BUPIVACAINE 0.5% (PF) VIAL 2 ML INJ (11:55)
[2020-08-31] MEDS: IOPAMIDOL 15 ML VIAL 3 ML INJ (11:55)
[2020-08-31] MEDS: BETAMETHASONE 30 MG/5 ML MDV 12 MG INJ (11:55)
--- NOTE | 2020-08-31 12:07 | PM.PROC.IR.1 ---
Date/Time/Diagnoses Date of procedure: 08/31/20 Time of procedure: 12:07 Pre-procedure diagnosis: Sacroiliac joint pain/DJD Post-procedure diagnosis: same Procedure Notes Procedure: Fluoroscopically guided contrast controlled right sacroiliac joint injection Indications: Agustin is referred by Dr. Candelario for treatment of right sacroiliac joint DJD Physician: Galo Lang Total Fluoroscopy time (seconds): 10 Total sedation minutes: 12 Complications: none Procedure in detail & Post-procedure care: DESCRIPTION OF PROCEDURE Fluoroscopically guided, contrast controlled right sacroiliac joint injection Following review of allergies and review of potential side effects and complications, including, but not necessarily limited to, infection, allergic reaction, local tissue breakdown, temporary as well as permanent nerve injury, paralysis, stroke and possible , the patient indicated that they understood and agreed to proceed. An informed consent was signed by the patient, witnessed by a nurse, and placed in the patient's chart. Additionally, other treatment options including modalities, medications, and physical therapy were reviewed with the patient. After review of previous anaesthesic history and IV conscious sedation the patient was deemed safe to proceed with today?s procedure with IV conscious sedation as ASA class II designation. Safety time-out was performed to confirm patient ID, procedure to be performed and site of procedure. IV sedation was accomplished with a combination of 2mg of Versed and 50mcg of Fentanyl was administered by the RN after DO order, titrated to patient comfort during the course of the procedure while the patient remained responsive to all verbal commands In the prone position following sterile prep and drape of the pelvic region, the hyper lucency on in the inferior aspect of the sacroiliac joint was identified fluoroscopically the skin was anesthetized be a 25 gauge 1 eventual with approximately 2 cc of 1% lidocaine solution. At this point, a 22 gauge 3 in spinal needle was atraumatically introduced and advanced under fluoroscopic guidance into the inferior aspect of the right sacroiliac joint. Following negative aspiration, approximately 0.3cc of Isovue-300 was injected confirming intra-articular placement without vascular uptake. Radiographic data, including multiple fluoroscopic views of the pelvis, reveals a spinal needle in the sacroiliac joint hyper lucent zone. Subsequent view show flow contrast tear superiorly and inferiorly within the joint capsule without vascular intrathecal uptake. At this point a total of 1 of 0.5% Marcaine was combined with 1cc of 6 mg of betamethasone was injected without incident. The procedure tolerated the procedure well without signs or symptoms of complications prior to transfer to the recovery area continued monitoring without incident. The patient was then transferred to the recovery area with a bur observed for an appropriate time after the injection. The patient reverted a vas score of 7 prior to the procedure and post-procedure vas of 1. POSTOP INSTRUCTIONS The patient was provided with a pain like to continue to record the patient's response to the target specific procedure prior to the patient's follow-up visit with the referring physician. Additionally, specific post injection care instructions and a contact number to our office were provided if concerns arise regarding the possible complications associated with procedure are suspected.
== END 2020-08-31 12:25 | disposition home or self-care (01) ==
LOC: RAD 10:14
PROVIDERS: PCP Family Medicine; Referring Provider Physical Medicine & Rehabilitation; Visit Provider Physical Medicine & Rehabilitation
DX: M53.3 Sacrococcygeal disorders, not elsewhere classified (principal); M46.1 Sacroiliitis, not elsewhere classified
CPT/HCPCS: 27096; 99152; J0702; J2250; J3010

== ENCOUNTER 2020-10-12 12:27 | Outpatient (CLI) | payer MEDICARE, MEDICAID, SELFPAY ==
--- NOTE | 2020-10-12 12:28 | DI.RAD.S_ITS ---
PROCEDURE: PAIN L/S TRANSFORAMINAL INJECT INDICATIONS: SPONDYLOSIS COMPARISON: [facility], , PAIN L/S TRANSFORAMINAL INJECT, 09/16/2019, 9:32. FINDINGS: Fluoroscopic spot filming was performed to verify placement of a spinal needle at the L5-S1 level, as labeled on the films. Appropriate location of the needle tip was confirmed by injection of iodinated contrast. IMPRESSION: No significant intraprocedural abnormality. Dictated by: Humble Begum M.D. on 10/12/2020 at 13:07 Approved by: Humble Begum M.D. on 10/12/2020 at 13:07
[2020-10-12 13:00] VITALS: BP 122/79; PULSE 68; RESP 17; TEMP 36.9; O2SAT 100
[2020-10-12] MEDS: MIDAZOLAM 5 MG/5 ML VIAL IV (13:30)
[2020-10-12] MEDS: fentaNYL 100 MCG/2 ML INJ 50 MCG IV (13:30)
[2020-10-12 13:33] VITALS: BP 119/69; PULSE 79; RESP 16; O2SAT 100
[2020-10-12] MEDS: DEXAMETHASONE 10 MG/ML VIAL 20 MG INJ (13:34)
[2020-10-12] MEDS: IOPAMIDOL 15 ML VIAL 3 ML INJ (13:34)
[2020-10-12] MEDS: BETAMETHASONE 30 MG/5 ML MDV 6 MG INJ (13:34)
[2020-10-12] MEDS: BUPIVACAINE 0.25% (PF) VIAL 2 ML INJ (13:34)
[2020-10-12 13:40] VITALS: BP 107/65; PULSE 80; RESP 14; O2SAT 97
--- NOTE | 2020-10-12 13:44 | P.PCN_ITS ---
Date/Time/Diagnoses Date of procedure: 10/12/20 Time of procedure: 13:44 Pre-procedure diagnosis: 1. FORAMINAL STENOSIS WITH LE SYMPTOMS Post-procedure diagnosis: same Procedure Notes Procedure: 1. FLUOROSCOPICALLY GUIDED CONTRAST CONTROLLED TRANSFORAMINAL EPIDURAL STEROID INJECTION - Left L5/S1 Indications: Agustin is referred by Dr. Candelario for treatment of Foraminal Stenosis with Left LE Symptoms Physician: Galo Lang Total Fluoroscopy time (seconds): 9 Total sedation minutes: 11 Complications: none Procedure in detail & Post-procedure care: FINDINGS Foraminal Nerve Root Compression secondary to disc disease and facet hypertrophy DESCRIPTION OF PROCEDURE Following review of allergy and review of potential side effects and complications, including, but not necessarily limited to, infection, allergic reaction, local tissue breakdown, stroke, temporary or permanent nerve injury, paralysis, and possible , the patient indicated that the patient understood and agreed to proceed. An informed consent document was signed by the patient, witnessed by a nurse, and placed in the patient's chart. Additionally, other treatment options including medications, modalities, and physical therapy were reviewed with the patient. After review of previous anaesthesic history and IV conscious sedation the patient was deemed safe to proceed with today?s procedure with IV conscious sedation as ASA class II designation. Safety time-out was performed to confirm patient ID, procedure to be performed and site of procedure. IV sedation was accomplished with a combination of 2mg of Versed and 50mcg of Fentanyl was administered by the RN after DO order, titrated to patient comfort during the course of the procedure while the patient remained responsive to all verbal commands In the prone position following sterile prep and drape of the lumbar region, the Left L5/S1 posterior neuroforamen was identified fluoroscopically. The skin was anesthetized via a 25-gauge 1.5-inch needle with 1% lidocaine solution. At this point, a 25-gauge 3.5-inch spinal needle was atraumatically introduced and advanced under fluoroscopic guidance through the posterior Left L5/S1 neuro foramen to approximately the anterior aspect of the canal. Depth was confirmed on lateral view. Following negative aspiration, injection of approximately 1.5 cc of Isovue 200 under live fluoroscopy in the AP view confirmed excellent flow along the nerve root, into the epidural space without vascular or intrathecal uptake observed Radiological data, including multiple fluoroscopic views of the lumbosacral spine, reveal a spinal needle at the Left L5/S1 posterior neuroforamen. Subsequent views show flow of contrast material flowing superiorly and inferiorly along the nerve root confirming epidural flow. Subsequently, a test dose of 1.5 cc of 1% lidocaine solution was administered and patient was observed for two minutes for signs or symptoms of complications, including abdominal pain, shortness of breath, bilateral upper or lower extremity weakness, nausea and vomiting, prior to steroid injection. At this point, a total of 3cc or 20mg of dexamethasone and 6mg of betamethasone was injected without incident. The procedure tolerated the procedure well without signs or symptoms of complications prior to transfer to the recovery area continued monitoring without incident. The patient was then transferred to the recovery area where they were observed for an appropriate time after the injection. The patient reported a VAS score of 7 prior to the procedure and a post-procedure VAS of 0. POST OP INSTRUCTIONS The patient was provided a Pain Log to continue to record their response to the target-specific procedure prior to follow-up visit with their referring physician. Additionally, specific post-injection care instructions and a contact number to our office were provided if concerns arise regarding possible complications associated with the procedure are suspected.
[2020-10-12 13:50] VITALS: BP 126/61; PULSE 73; RESP 18; O2SAT 98
[2020-10-12 14:00] VITALS: BP 119/81; PULSE 79; RESP 20; O2SAT 98
[2020-10-12 14:12] VITALS: BP 120/68; PULSE 78; RESP 20; O2SAT 97
== END 2020-10-12 14:10 | disposition home or self-care (01) ==
LOC: RAD 12:27
PROVIDERS: PCP Family Medicine; Referring Provider Physical Medicine & Rehabilitation; Visit Provider Physical Medicine & Rehabilitation
DX: M48.07 Spinal stenosis, lumbosacral region (principal); M51.17 Intervertebral disc disorders with radiculopathy, lumbosacral region
CPT/HCPCS: 64483; 99152; J0702; J1100; J2250; J3010